=== PATIENT | female | born 1980 ===

== ENCOUNTER 2019-05-19 12:14 | Outpatient (CLI) | payer OTHER | END 2019-05-19 12:17 | disposition home or self-care (01) | LOC: RX STUDY 12:14 | DX: N92.5 Other specified irregular menstruation (principal) ==

== ENCOUNTER 2022-11-11 09:31 | Outpatient (CLI) | payer OTHER | END 2022-11-11 10:05 | disposition home or self-care (01) | LOC: RX STUDY 09:31 | PROVIDERS: ATTEND Obstetrics & Gynecology Gynecology | DX: N91.1 Secondary amenorrhea (principal); N84.0 Polyp of corpus uteri ==